=== PATIENT | female | born 1950 | race Caucasian/White ===

== ENCOUNTER → 2018-12-04 | Outpatient (CLI) | payer MEDICARE, OTHER ==
[~2018-12-04] MED LIST: Aspirin PO; CATHETER FLUSH 10 ML SYR IV PRN; CLPD75T PO; Lisinopril PO; Metoprolol Succinate PO; REGADENOSON 0.4 MG/5 ML SYR (LEXISCAN) IV ONE; Simvastatin PO
[2018-12-04 13:21] VITALS: BP 135/95
--- NOTE | 2018-12-07 15:55 | STRESS TEST ---
DATE OF SERVICE: 12/04/2018 RESTING AND POST REGADENOSON TECHNETIUM-99M TETROFOSMIN SPECT CT IMAGING ORDERING PHYSICIAN: Dr. Bolanos. PRIMARY PHYSICIAN: EVON Tate. CLINICAL DIAGNOSIS: Coronary artery disease. Baseline images were carried out after injection of 10.26 mCi of technetium-99m Tetrofosmin. This was followed by 0.4 mg of regadenoson and 30.8 mCi of technetium-99m Tetrofosmin for stress imaging. The electrocardiogram showed sinus rhythm at baseline. The electrocardiogram did not change significantly with the regadenoson infusion. The patient tolerated the procedure well. Review of images at rest and following stress indicates an apical inferolateral perfusion defect, which is predominantly fixed. Gated images show normal global left ventricular systolic function without distinct regional wall motion abnormality. Left ventricular ejection fraction is calculated to be 54%. Left ventricular end diastolic volume is 53 mL. TID is absent (1.05). CONCLUSIONS: 1. This study is suggestive of an inferolateral myocardial infarction in the apical portion. No significant ischemia is seen. 2. Regional wall motion appears to be normal, suggesting that the above-mentioned infarct may be artifactual. 3. Left ventricular ejection fraction is calculated to be 54%. Job ID: [id number] DocumentID: [id number] Dictated Date: 12/07/2018 14:43:26 Asset Management Coordinator Date: 12/07/2018 15:55:07 Dictated By: ORIANA BOLANOS MD, MA, FACP, FACC,
== END ==
LOC: CARD 11:12
PROVIDERS: ATTEND Internal Medicine Cardiovascular Disease
DX: I25.10 Atherosclerotic heart disease of native coronary artery without angina pectoris (principal); I65.29 Occlusion and stenosis of unspecified carotid artery; E78.5 Hyperlipidemia, unspecified
CPT/HCPCS: 78452; 93017; 93306

== ENCOUNTER 2018-12-18 06:53 | Day surgery (SDC) | payer MEDICARE, OTHER ==
[~2018-12-18] VITALS: Ht 162.6 cm; Wt 72.7 kg
[2018-12-18] VITALS (8 sets, daily range): BP systolic 113–139; BP diastolic 73–96
[~2018-12-18 06:53] MED LIST changes: -CATHETER FLUSH 10 ML SYR IV PRN; -REGADENOSON 0.4 MG/5 ML SYR (LEXISCAN) IV ONE
[2018-12-18] MEDS ORDERED: HEParin (CATH LAB) 2,000 ML IV ONE (07:09)
[2018-12-18] MEDS ORDERED: LIDOCAINE 1% INJ 20 ML 20 ML VIAL ONE ×3 (07:09→10:45)
[2018-12-18] MEDS ORDERED: NS IV 1000 ML 1,000 ML IV SCH ×2 (07:15→11:59)
[2018-12-18 07:33] LABS: HEMOGLOBIN 15.3 G/DL (11.5-16.0); MEAN PLATELET VOLUME 9.9 FL (7.4-10.4); RED CELL DISTRIBUTION WIDTH 13.9 % (10.0-14.5)
[2018-12-18 07:48] LABS: INR 0.9 (0.8-1.4); PROTHROMBIN TIME PATIENT 12.3 SEC (12.2-14.7)
[2018-12-18 07:55] LABS: ALANINE AMINOTRANSFERASE 23 U/L (0-55); ALKALINE PHOSPHATASE 74 U/L (40-136); BILIRUBIN,TOTAL 0.4 MG/DL (0.1-1.0); BUN/CREATININE RATIO 15; CALCIUM 10.2 MG/DL (8.5-10.1); CARBON DIOXIDE 25 MMOL/L (21-32); CHLORIDE 103 MMOL/L (98-107); CHOLESTEROL 153 MG/DL (< 200); CREATININE SERUM 0.74 MG/DL (0.60-1.30); GFR ESTIMATED > 60; GLUCOSE 109 MG/DL (70-105); HDL CHOLESTEROL 52 MG/DL (40-60); POTASSIUM 3.8 MMOL/L (3.6-5.0); SODIUM 140 MMOL/L (135-145); TOTAL PROTEIN 8.4 GM/DL (6.4-8.2); TRIGLYCERIDES 88 MG/DL (<150); VLDL CHOLESTEROL 18 MG/DL (5-40)
[2018-12-18] MEDS ORDERED: HEParin 1000 UNIT/ML (10ML VIAL) FOR BOLUS ONE (09:31)
[2018-12-18] MEDS ORDERED: fentaNYL INJECTION 100 MCG/2 ML AMP ONE (09:31)
[2018-12-18] MEDS ORDERED: NITRO DRIP 25000 MCG/D5W 0 ML IV ONE (09:31)
[2018-12-18] MEDS ORDERED: MIDAZOLAM 5 MG/5 ML (VERSED) VIAL ONE (09:31)
--- NOTE | 2018-12-18 09:38 | Cardiac Procedure Note-CS/ASA ---
Pre-Procedure Note Pre-Op Procedure Note H&P Reviewed The H&P was reviewed, patient examined and no changes noted. Date H&P Reviewed: Dec 18, 2018 Time H&P Reviewed: 09:37 Conscious Sedation Pre-Proced Time 09:37 ASA Score 3 For ASA 3 and 4: Consider anesthesia and medical clearance. Also, for patients with a history of failed moderate sedation consider anesthesia. Airway Lungs Heart ASA score ASA 1: a normal healthy patient ASA 2: a patient with a mild systemic disease (mid diabetes, controlled hypertension, obesity ASA 3: a patient with a severe systemic disease that limits activity (angina, COPD, prior Myocardial infarction) ASA 4: a patient with an incapacitating disease that is a constant threat to life (CHF, renal failure) ASA 5: a moribund patient not expected to survive 24 hrs. (ruptured aneurysm) ASA 6: a declared brain- patient whose organs are being harvested. For emergent operations, add the letter E after the classification Mallampati Classification Grade 2 Sedation Plan Analgesia, Amnesia, Plan communicated to team members, Discussed options with patient/fam, Discussed risks with patient/fam The patient is an appropriate candidate to undergo the planned procedure, sedation, and anesthesia. The patient immediately re-assessed prior to indication. ORIANA BEVERLY MD FACP FAC [facility] Dec 18, 2018 09:38
[2018-12-18] MEDS ORDERED: ADENOSINE 3 MG/1 ML (ADENOSCAN) 30ML VIAL IV ONE (10:57)
[2018-12-18] MEDS ORDERED: PATIENT MAY USE OWN MEDS, ALL PO SCH (12:00)
--- NOTE | 2018-12-18 12:03 | Discharge Inst-Post CATH ---
Discharge Inst-CATH/EP Post Cardiac Cath/EP D/C Inst Follow Up/Plan F/u with Dr Bolanos in 2 weeks ACTIVITY * Go Home directly and rest. * Limit activity of the leg (or wrist if it was used) for 7 days including aerobics, swimming, jogging, bicycling, etc. * Restrict stair-climbing for 7 days if possible, if not, climb up with your n on-cath leg, then bring together on the same step. * Avoid lifting, pushing, pulling or excessive movement of the affected ex tremity for 7 days. * Customary sexual activity may be resumed after 2 days-use caution not to use a position that strains or causes pain to the affected extremity. * No driving for 24 hours. * NO SMOKING. * Avoid straining for bowel movements for 7 days. * Gentle walking on level ground is allowed. * Returning to work will depend on the type of procedure and the results. Your doctor will discuss this with you. CALL YOUR DOCTOR FOR ANY OF THE FOLLOWING: *If bleeding from the puncture site occurs- Apply gentle pressure to site with clean cloth and call your doctor or EMS. * If a knot or lump forms under the skin, increases in size, or causes pain. * If bruising appears to be worsening or moving further down your leg instead of disappearing. * Temperature above 101 F. CARE OF YOUR GROIN INCISION; * Bruising or purple discoloration of the skin near the puncture site is common. * You may shower only, no bathtub bathing for 5 days. Be careful to avoid slipping as your leg may feel stiff. * If a closure device was used on your femoral artery, please see the attached guide regarding care of the device and your leg. * Leave dressing on FOR 24 hours. CARE OF YOUR WRIST INCISION; * Bruising or purple discoloration of the skin near the puncture site is common. * You may shower. * DO NOT submerge wrist. * Leave dressing on FOR 24 hours. ORIANA BOLANOS MD [facility] Dec 18, 2018 12:03
--- NOTE | 2018-12-18 12:54 | Discharge Inst-Cardiology ---
Discharge Inst-Cardiac Discharge Medications Continued Medications: [Aspirin] () 81 MG TABEC 81 MG PO DAILY, #30 TAB 5 Refills [Simvastatin] () 20 MG TAB 20 MG PO HS, #30 TAB 5 Refills [address] [facility] Dec 18, 2018 12:54
--- NOTE | 2018-12-18 14:16 | CARDIAC CATHETERIZATION ---
DATE OF SERVICE: 12/18/2018 CARDIAC CATHETERIZATION REPORT The patient is a 68-year-old lady, who is known to have coronary artery disease and who has been experiencing symptoms of shortness of breath and chest discomfort, which are suggestive of recurrent angina. A myocardial perfusion imaging of 12/2018 is suggestive of inferolateral myocardial infarction in the apical portion. Given this new finding and a known history of coronary artery disease, we proceeded with cardiac catheterization today. Informed consent was obtained. DESCRIPTION OF PROCEDURE: She was brought to the cardiac catheterization laboratory in a fasting state. Right groin was prepared and draped in the usual sterile fashion. Lidocaine 1% was used for local anesthesia. Modified Seldinger technique was used to advance a 5-Gu[place] sheath in right femoral artery. We were not able to advance a wire through the common femoral and external iliac because of significant tortuosity of these vessels on the right side. Subsequent angiography revealed a dissection in the right common femoral and the right external iliac. We removed the sheath and held pressure for 15 minutes. Good hemostasis was assured. We then switched to the left groin. We used the Seldinger technique to advance a 5-[place] sheath into the left femoral artery. We used a 5-[place]atem[place] JL4 catheter for left coronary angiography. We used a 5-[place] JR4 catheter for right coronary angiography. We used a 5-[place]atemalan pigtail catheter for left heart catheterization, left ventricular angiography. The pigtail catheter was then pulled back to the abdominal aorta and abdominal aortic angiography was performed with the pigtail catheter placed at the level of L1. The catheter was then pulled down further to the level of the aortoiliac junction such that the catheter was just above the aortoiliac junction. Angiography was performed with bilateral runoff down to the level of the ankles. This catheter was then removed and we exchanged the sheath over a wire for a 6-Guatem[place] sheath. We did this to carry out fractional flow reserve measurement in the proximal left anterior descending artery, as described below. FRACTIONAL FLOW RESERVE MEASUREMENT IN THE LEFT ANTERIOR DESCENDING ARTERY: We used a 6-[place] JL4 guide catheter. We gave 5000 units of intravenous heparin. We advanced a pressure wire across the lesion and the tip was placed in the distal part of the left anterior descending artery. We gave adenosine 140 mcg per kilogram per minute for 2-1/2 minutes. Fractional flow reserve was 0.86. This indicated that the lesion was not hemodynamically significant. The wire was removed. We carried out an another angiogram of the left coronary system to ensure that there were no complications. The catheter was then removed. We carried out angiography of the left femoral artery through the sheath. Mynx was used to achieve hemostasis. She tolerated the procedure well. HEMODYNAMICS: Left ventricular end-diastolic pressure following coronary angiography was 6 mmHg. There was no significant pressure gradient on pullback across the aortic valve. Ascending aortic pressure was 111/75 with a mean of 49 mmHg. CORONARY ANGIOGRAPHY: Coronary calcification is seen. There is diffuse mild plaque of all coronary vessels. The left anterior descending artery had approximately 50% proximal stenosis with some haziness. Fractional flow reserve across this lesion was measured and found to be 0.86, indicating that this is hemodynamically nonsignificant. The left circumflex artery has a widely patent stent and a large obtuse marginal branch. The right coronary artery is dominant and has mild diffuse plaques. ABDOMEN AORTIC ANGIOGRAPHY: Abdominal aortic angiography indicates abdominal aortic plaque and calcification. There is some ectasia of the infrarenal abdominal aorta, but there does not appear to be significant abdominal aortic aneurysm. The aortoiliac bifurcation is intact and does not exhibit significant stenosis. The renal arteries are identified. There is mild plaque in both renal arteries, but no significant obstructive disease. The mesenteric vessels, to the extent seen, do not exhibit significant disease. BILATERAL LEG ARTERY ANGIOGRAPHY: The common iliacs are intact on both sides. The aortoiliac bifurcation is somewhat higher than usual, but does not exhibit significant obstructive disease. The right external iliac and the right common iliac artery are tortuous and there is approximately 50% stenosis. There does not appear to be any significant obstruction to the flow. There does not appear to be significant dissection in the antegrade dissection. Dissection was seen in the retrograde direction when injections were done earlier through the right common iliac sheath. The sheath was subsequently removed. As stated, there does not appear to be significant antegrade obstruction or dissection. There is approximately 50% stenosis in the proximal portions of the superficial and the deep femoral arteries on the right side. The popliteal artery is intact and trifurcates. On the left side, there is considerable tortuosity of the iliac and the femoral systems, but there does not appear to be significant obstructive disease. The popliteal artery is intact on the left side and trifurcates. LEFT VENTRICULAR ANGIOGRAPHY: Left ventricular angiography was carried out in right anterior oblique projection. There does not appear to be distinct regional wall motion abnormality. Left ventricular ejection fraction is 50 to 55%. CONCLUSIONS: 1. Mild coronary artery disease. A 50% stenosis in the proximal left anterior descending artery is hemodynamically nonsignificant (fractional flow reserve 0.86). There is a patent stent in a large obtuse marginal of the left circumflex, without significant stenosis. The rest of the coronary vessels have mild diffuse plaque. 2. Well-preserved global left ventricular systolic function with ejection fraction of 50 to 55%. 3. Normal left ventricular end-diastolic pressure. 4. Abdominal aortic ectasia (mild) and mild atherosclerosis without any distinct aneurysm formation. 5. Intact renal arteries with mild bilateral plaque. 6. 50% stenoses of R external faizan, R common femoral and proximal part of the right superficial femoral arteries. DISCUSSION AND RECOMMENDATIONS: Based on results of the study, it appears appropriate to continue a conservative approach. Risk factor modification has been advised. Outpatient followup is advised. Job ID: [id number] DocumentID: [id number] Dictated Date: 12/18/2018 11:48:29 Freight Shipping Agent Date: 12/18/2018 14:15:28 Dictated By: ORIANA BEVERLY MD, MA, FACP, FACC, MTDD
== END 2018-12-18 15:15 | disposition home or self-care (01) ==
LOC: CATH 06:53 → SDC 12:00 → CATH 15:15
PROVIDERS: ATTEND Internal Medicine Cardiovascular Disease
DX: I25.10 Atherosclerotic heart disease of native coronary artery without angina pectoris (principal); I77.1 Stricture of artery; I10 Essential (primary) hypertension; E78.5 Hyperlipidemia, unspecified; H91.90 Unspecified hearing loss, unspecified ear; R94.39 Abnormal result of other cardiovascular function study; Z79.82 Long term (current) use of aspirin; Z79.899 Other long term (current) drug therapy; Z83.3 Family history of diabetes mellitus; Z82.49 Family history of ischemic heart disease and other diseases of the circulatory system; Z95.1 Presence of aortocoronary bypass graft; Z87.891 Personal history of nicotine dependence; Z88.0 Allergy status to penicillin
CPT/HCPCS: 36415; 75625; 75716; 80053; 80061; 85027; 85610; 85730; 87081; 93458

== ENCOUNTER → 2019-03-13 | Outpatient (CLI) | payer MEDICARE, OTHER ==
[~2019-03-13] MED LIST changes: +RT-ALBUTEROL SULF 2.5 MG/3 ML PRE-MIX VIAL INH ONE
== END ==
LOC: RT 15:33
PROVIDERS: ATTEND Nurse Practitioner Family
DX: I25.10 Atherosclerotic heart disease of native coronary artery without angina pectoris (principal); R06.09 Other forms of dyspnea; E78.5 Hyperlipidemia, unspecified; Z87.891 Personal history of nicotine dependence
CPT/HCPCS: 94060; 94726; 94729

== ENCOUNTER → 2019-04-17 | Outpatient (CLI) | payer MEDICARE, OTHER ==
[~2019-04-17] MED LIST changes: +CATHETER FLUSH 10 ML SYR IV PRN; +HOLD METFORMIN - RECEIVED CONTRAST 20 ML VIAL IV SCH; +IOHEXOL 350 MG/ML 100 ML (OMNIPAQUE 350) VIAL IV ONE; +NS 100 ML (IVPB) BAG IV ONE; -RT-ALBUTEROL SULF 2.5 MG/3 ML PRE-MIX VIAL INH ONE
[2019-04-17 11:27] LABS: BUN/CREATININE RATIO 21; CREATININE SERUM 0.67 MG/DL (0.60-1.30); GFR ESTIMATED > 60
--- NOTE | 2019-04-17 14:16 | Diagnostic Imaging Report ---
CT CHEST W TECHNIQUE: Multiple contiguous axial images were obtained through the chest with the use of intravenous contrast. All CT scans use one or more of the following dose optimizing techniques: automated exposure control, MA and/or KvP adjustment based on a patient size and exam type, or iterative reconstruction. INDICATION: Cough, shortness of breath. COMPARISON: None available. FINDINGS: Lungs and airway: No endoluminal nodule within the trachea. No pulmonary mass or consolidation. Calcified right upper lobe pulmonary nodule is compatible with an old granulomatous infection. Moderate centrilobular emphysema is present. Biapical subpleural scarring is present. No pulmonary fibrosis. Pleura: No pleural effusion or pneumothorax. Heart and mediastinum: Thyroid is normal where visualized. No supraclavicular or axillary lymphadenopathy. There are numerous subcentimeter mediastinal lymph nodes, some which are calcified, and all likely due to sequelae of old granulomatous infection. No concerning hilar or juxtaphrenic lymphadenopathy. Heart is normal in size without pericardial effusion. Scattered coronary artery calcifications and/or stents. Normal caliber thoracic aorta. Upper abdomen: There are low attenuation bilateral adrenal nodules which are stable dating back to thoracic spine MRI of 01/28/2008, and are less therefore benign in nature. Musculoskeletal: No worrisome focal osseous lesion. IMPRESSION: 1. No acute cardiopulmonary process or pulmonary fibrosis. 2. Old granulomatous infection. Dictated by: Dictated on workstation # [id number]
== END ==
LOC: SLEEP 10:40
PROVIDERS: ATTEND Nurse Practitioner Family
DX: J44.9 Chronic obstructive pulmonary disease, unspecified (principal); J98.4 Other disorders of lung; G47.10 Hypersomnia, unspecified; R06.83 Snoring
CPT/HCPCS: 36415; 71260; 82565; 84520

== ENCOUNTER → 2020-12-03 | Outpatient (CLI) | payer MEDICARE, OTHER ==
[~2020-12-03] MED LIST changes: -CATHETER FLUSH 10 ML SYR IV PRN; -HOLD METFORMIN - RECEIVED CONTRAST 20 ML VIAL IV SCH; -IOHEXOL 350 MG/ML 100 ML (OMNIPAQUE 350) VIAL IV ONE; -NS 100 ML (IVPB) BAG IV ONE
== END ==
LOC: CARD 10:00
PROVIDERS: ATTEND Nurse Practitioner Family
DX: I25.10 Atherosclerotic heart disease of native coronary artery without angina pectoris (principal)
CPT/HCPCS: 93306

== ENCOUNTER → 2020-12-04 | Outpatient (CLI) | payer MEDICARE, OTHER ==
[~2020-12-04] MED LIST changes: +REGADENOSON 0.4 MG/5 ML SYR (LEXISCAN) IV ONE
[2020-12-04] MEDS: CATHETER FLUSH 10 ML SYR IV PRN ×2 (07:53→09:17)
[2020-12-04 09:16] VITALS: BP 153/6
--- NOTE | 2020-12-08 14:16 | STRESS TEST ---
DATE OF SERVICE: 12/04/2020 RESTING AND POST REGADENOSON TECHNETIUM-99M TETROFOSMIN SPECT CT IMAGING ORDERING PHYSICIAN: Jamilah Glez APRN CLINICAL DIAGNOSIS: Coronary artery disease. Baseline images were carried out after injection of 9.91 mCi of technetium-99m Tetrofosmin. This was followed by 0.4 mg regadenoson and 29.8 mCi of technetium-99m Tetrofosmin for stress imaging. The electrocardiogram showed sinus rhythm at baseline. It did not change significantly with the regadenoson infusion. The patient tolerated the procedure well. Review of images at rest and following stress indicates a predominantly fixed inferolateral perfusion defect. There is inferolateral hypokinesis to akinesis. Left ventricular ejection fraction is calculated to be 48%. CONCLUSIONS: 1. Inferolateral myocardial infarction without significant ischemia. 2. Inferolateral hypokinesis to akinesis. 3. Left ventricular ejection fraction is calculated to be 48%. Job ID: [id number] DocumentID: [id number] Dictated Date: 12/08/2020 12:01:54 Intermediate School Teacher Date: 12/08/2020 14:15:37 Dictated By: ORIANA BEVERLY MD, MA, FACP, FACC,
== END ==
LOC: CARD 07:45
PROVIDERS: ATTEND Nurse Practitioner Family
DX: I25.10 Atherosclerotic heart disease of native coronary artery without angina pectoris (principal)
CPT/HCPCS: 78452; 93017; A9502